=== PATIENT | female | born 1975 | race Two or more races ===

== ENCOUNTER 2020-09-18 13:27 | Inpatient (IN) | payer BC, OTHER ==
[~2020-09-18] VITALS: Ht 162.6 cm; Wt 84.4 kg
--- NOTE | 2020-09-18 14:59 | NUR ---
[employer]: PT TO ROOM FROM LOBBY
[2020-09-18] MEDS ORDERED: ONDANSETRON 2MG/ML, 2ML ONE (15:27)
[2020-09-18] MEDS ORDERED: HYDROmorphone 1 MG/ML, 1ML INJ ONE ×2 (15:27→18:03)
[2020-09-18] MEDS ORDERED: SODIUM CHLORIDE FLUSH 10ML SYR IVF ONE (15:30)
[2020-09-18] MEDS ORDERED: ONDANSETRON 2MG/ML, 2ML IVPush ONE (15:30)
[2020-09-18] MEDS: HYDROmorphone 2 MG/ML, 1ML IVPush PRN ×2 (15:49→18:12)
[2020-09-18 15:59] LABS: BASOPHILS % (AUTO) 1 % (0-1); EOSINOPHILS % (AUTO) 1 % (1-7); LYMPHOCYTES % (AUTO) 18 % (22-44); MEAN CORPUSCULAR HEMOGLOBIN 26.1 pg (27.0-34.8); MEAN CORPUSCULAR HGB CONC 32.1 g/dL (32.4-35.8); MONOCYTES % (AUTO) 6 % (2-9); NEUTROPHILS % (AUTO) 74 % (42-75); PLATELET COUNT 334 x10^3/uL (130-400); RED CELL DISTRIBUTION WIDTH 16.1 % (9.6-15.2)
[2020-09-18 16:02] LABS: MD NO
[2020-09-18 16:12] LABS: ALANINE AMINOTRANSFERASE 55 U/L (12-78); ALBUMIN 3.4 g/dL (3.4-5.0); ANION GAP 8 mmol/L (5-15); CALCIUM 8.8 mg/dL (8.5-10.1); CHLORIDE 104 mmol/L (98-107); CREATININE 0.79 mg/dL (0.55-1.02)
[2020-09-18 16:16] LABS: ALKALINE PHOSPHATASE 93 U/L (45-117); BILIRUBIN,TOTAL 0.5 mg/dL (0.2-1.0); TOTAL PROTEIN 8.9 g/dL (6.4-8.2)
--- NOTE | 2020-09-18 16:17 | NUR ---
Up to void-unable to do so erp aware-to order 1l ns then have patient repeat cc us attempt
[2020-09-18] MEDS ORDERED: SODIUM CHLORIDE 0.9% 1,000ML IVBOLUS ONE (16:30)
--- NOTE | 2020-09-18 17:25 | NUR ---
straight andres ua obtained by female collegue-walked to lab
[2020-09-18 17:54] LABS: MICROSCOPIC NOT IND
--- NOTE | 2020-09-18 18:12 | NUR ---
All testing resulted. With reassessment- pain worse to 8/10. Provider made aware. aked for imagining orders as well as reassessment
--- NOTE | 2020-09-18 18:27 | NUR ---
BREAK RN: PT AT RADIOLOGY. REPORT GIVEN BY NORMAN FOR BREAK.
--- NOTE | 2020-09-18 18:40 | NUR ---
BREAK RN: PT BACK FROM RADIOLOGY. VS STABLE. NO ACUTE DISTRESS NOTED. CALL LIGHT IN PLACE. WILL CONTINUE TO MONITOR WHILE PRIMARY RN IS ON BREAK.
--- NOTE | 2020-09-18 18:52 | NUR ---
report given to MISAEL Romero
[2020-09-18] MEDS ORDERED: OMNIPAQUE 350 MG/ML, 100ML BOTTLE ONE (19:52)
--- NOTE | 2020-09-18 20:09 | NUR ---
PT REPORT PAIN IS STILL AT AN ACCEPTABLE LEVEL. AWAITING CT RESULTS
--- NOTE | 2020-09-18 20:48 | NUR ---
PT AMBULATORY TO THE BATHROOM WITH A STEADY GAIT
[2020-09-18] MEDS ORDERED: SODIUM CHLORIDE FLUSH 10ML SYR IVF PRN (22:30)
[2020-09-18] MEDS ORDERED: SODIUM CHLORIDE 0.9% 1,000 ML IV ONE (22:30)
--- NOTE | 2020-09-18 22:30 | NUR ---
PT REQUESTING MORE PAIN MEDS. NOTIFIED.
[2020-09-18] MEDS ORDERED: MORPHINE SULFATE 4 MG/ML, 1ML ONE (22:33)
--- NOTE | 2020-09-18 22:46 | NUR ---
pt medicated for pain. ivf started. report given to vj neumann
--- NOTE | 2020-09-18 22:49 | NUR ---
unable to complete pt med rec d/t pt does not remember names and doses of meds. she is in the process of obtaining this information from a family member at home
[2020-09-18] MEDS ORDERED: metformin (22:50)
[2020-09-18] MEDS ORDERED: MORPHINE SULFATE 4 MG/ML, 1ML IVPush PRN (23:00)
[2020-09-18 23:11] VITALS: BP 113/78
[2020-09-18] MEDS ORDERED: METF-734 PO (23:16)
[2020-09-18] MEDS ORDERED: ROSU5TAB12 PO (23:17)
[2020-09-18] MEDS ORDERED: OMEG1CAP34 PO (23:18)
[2020-09-19] MEDS: SODIUM CHLORIDE 0.9% 1,000 ML IV SCH ×3 (00:20→21:51)
[2020-09-19] MEDS ORDERED: BISACODYL 10 MG SUPP PR PRN (00:30)
[2020-09-19] MEDS ORDERED: LIDODERM 5% PATCH TD PRN (00:30)
[2020-09-19] MEDS ORDERED: ONDANSETRON 2MG/ML, 2ML IVPush PRN (00:30)
[2020-09-19] MEDS ORDERED: MELATONIN 5 MG TABLET PO PRN (00:30)
[2020-09-19] MEDS ORDERED: hydrALAzine 20 MG/ML, 1ML IVPush PRN (00:30)
[2020-09-19] MEDS ORDERED: ACETAMINOPHEN 325 MG TABLET PO PRN (00:30)
[2020-09-19] MEDS: HYDROmorphone 2 MG/ML, 1ML IVPush PRN ×4 (01:48→20:02)
[2020-09-19 02:24] VITALS: BP 107/67
[2020-09-19 04:54] LABS: BASOPHILS % (AUTO) 0 % (0-1); EOSINOPHILS % (AUTO) 1 % (1-7); LYMPHOCYTES % (AUTO) 17 % (22-44); MEAN CORPUSCULAR HEMOGLOBIN 26.6 pg (27.0-34.8); MEAN CORPUSCULAR HGB CONC 32.8 g/dL (32.4-35.8); MEAN PLATELET VOLUME 7.8 fL (7.4-10.4); MONOCYTES % (AUTO) 7 % (2-9); NEUTROPHILS % (AUTO) 75 % (42-75); PLATELET COUNT 299 x10^3/uL (130-400); RED BLOOD COUNT 3.97 x10^6/uL (3.82-5.3)
[2020-09-19 05:06] LABS: ALANINE AMINOTRANSFERASE 44 U/L (12-78); ALBUMIN 2.9 g/dL (3.4-5.0); ANION GAP 6 mmol/L (5-15); CHLORIDE 108 mmol/L (98-107); MD NO
[2020-09-19 05:09] LABS: ALKALINE PHOSPHATASE 84 U/L (45-117); BILIRUBIN,TOTAL 0.6 mg/dL (0.2-1.0); CHOL/HDL RATIO 4.9; CHOLESTEROL, TOTAL 153 mg/dL (140-239); CREATININE 0.63 mg/dL (0.55-1.02); HDL CHOL % 20 % (28-40); HDL CHOLESTEROL (DIRECT) 31 mg/dL (40-60); LDL CHOLESTEROL,CALCULATED 69 mg/dL (54-169); LDL/HDL RATIO 2.2 (0.5-3.0); TOTAL PROTEIN 7.4 g/dL (6.4-8.2); TRIGLYCERIDES 266 mg/dL (50-200); VLDL CHOLESTEROL 53 mg/dL (0-25)
[2020-09-19] MEDS: ENOXAPARIN 40 MG/0.4 ML SQ SCH (06:28)
[2020-09-19 08:27] VITALS: BP 110/75
[2020-09-19] MEDS ORDERED: metFORMIN 500 MG TABLET PO SCH (09:00)
[2020-09-19] MEDS: OMEGA-3/FISH OIL CAPSULE PO SCH (09:06)
[2020-09-19 15:34] VITALS: BP 117/80
[2020-09-19] MEDS: metFORMIN 500 MG TABLET PO SCH (16:08)
[2020-09-19 18:50] VITALS: BP 127/84
[2020-09-20 03:03] VITALS: BP 109/77
[2020-09-20] MEDS: SODIUM CHLORIDE 0.9% 1,000 ML IV SCH ×3 (04:12→20:10)
[2020-09-20 05:12] LABS: BASOPHILS % (AUTO) 0 % (0-1); EOSINOPHILS % (AUTO) 1 % (1-7); LYMPHOCYTES % (AUTO) 16 % (22-44); MEAN CORPUSCULAR HEMOGLOBIN 26.7 pg (27.0-34.8); MEAN PLATELET VOLUME 7.7 fL (7.4-10.4); MONOCYTES % (AUTO) 8 % (2-9); NEUTROPHILS % (AUTO) 76 % (42-75); PLATELET COUNT 266 x10^3/uL (130-400); RED BLOOD COUNT 3.67 x10^6/uL (3.82-5.3); RED CELL DISTRIBUTION WIDTH 15.7 % (9.6-15.2)
[2020-09-20 05:22] LABS: ANION GAP 6 mmol/L (5-15); CALCIUM 7.8 mg/dL (8.5-10.1); CHLORIDE 108 mmol/L (98-107)
[2020-09-20 05:23] LABS: CREATININE 0.47 mg/dL (0.55-1.02)
[2020-09-20 05:31] LABS: MD NO
[2020-09-20] MEDS: ENOXAPARIN 40 MG/0.4 ML SQ SCH (06:34)
[2020-09-20 07:31] VITALS: BP 138/91
[2020-09-20] MEDS: OMEGA-3/FISH OIL CAPSULE PO SCH (08:50)
[2020-09-20] MEDS: metFORMIN 500 MG TABLET PO SCH ×2 (08:50→17:35)
[2020-09-20 12:13] VITALS: BP 145/81
[2020-09-20 13:54] LABS: OCCULT BLOOD NEGATIVE (NEGATIVE)
[2020-09-20] MEDS ORDERED: LOPERAMIDE 2 MG CAPSULE PO ONE (18:00)
[2020-09-20 19:25] VITALS: BP 117/68
[2020-09-21 00:51] VITALS: BP 119/79
[2020-09-21] MEDS: SODIUM CHLORIDE 0.9% 1,000 ML IV SCH (02:57)
[2020-09-21] MEDS: ENOXAPARIN 40 MG/0.4 ML SQ SCH (04:58)
[2020-09-21 05:17] LABS: BASOPHILS % (AUTO) 0 % (0-1); EOSINOPHILS % (AUTO) 1 % (1-7); LYMPHOCYTES % (AUTO) 22 % (22-44); MEAN CORPUSCULAR HEMOGLOBIN 26.3 pg (27.0-34.8); MEAN CORPUSCULAR HGB CONC 32.8 g/dL (32.4-35.8); MEAN PLATELET VOLUME 8.2 fL (7.4-10.4); MONOCYTES % (AUTO) 8 % (2-9); NEUTROPHILS % (AUTO) 70 % (42-75); PLATELET COUNT 282 x10^3/uL (130-400); RED BLOOD COUNT 3.85 x10^6/uL (3.82-5.3); RED CELL DISTRIBUTION WIDTH 15.9 % (9.6-15.2)
[2020-09-21 05:18] LABS: MD NO
[2020-09-21 05:29] LABS: ANION GAP 6 mmol/L (5-15); CALCIUM 7.9 mg/dL (8.5-10.1); CHLORIDE 112 mmol/L (98-107); CREATININE 0.52 mg/dL (0.55-1.02)
[2020-09-21] MEDS ORDERED: OXYcodone/APAP 5/325MG TABLET PO PRN (06:30)
[2020-09-21 07:46] VITALS: BP 113/77
[2020-09-21] MEDS: OMEGA-3/FISH OIL CAPSULE PO SCH (08:05)
[2020-09-21] MEDS: metFORMIN 500 MG TABLET PO SCH (08:05)
[2020-09-21 12:45] VITALS: BP 131/81
== END 2020-09-21 14:09 | disposition home or self-care (01) | DRG 440 ==
LOC: ED 22:21 → EDIP 22:30 → 4NW 23:00 → DCLOUNGE 09-21 14:03
PROVIDERS: ADMIT Internal Medicine; ATTEND Internal Medicine
PROC: 0T9B70Z Drainage of Bladder with Drainage Device, Via Natural or Artificial Opening (ICD-10-PCS; principal; 2020-09-18)
DX: K85.90 Acute pancreatitis without necrosis or infection, unspecified (principal); I10 Essential (primary) hypertension; E11.9 Type 2 diabetes mellitus without complications; E78.5 Hyperlipidemia, unspecified; E66.9 Obesity, unspecified; Z68.31 Body mass index [BMI] 31.0-31.9, adult; Z79.899 Other long term (current) drug therapy
CPT/HCPCS: 36415; 74021; 74177; 80048; 80053; 80061; 81003; 82272; 83690; 83735; 84703; 85014; 85018; 85025; 96361; 96374; 96375; 99285; G0378; J1170; J1650; J2405; Q9967; J2270; J7030